=== PATIENT | male | born 1985 | race Caucasian/White ===

== ENCOUNTER 2024-10-08 05:43 | Emergency (ER) | payer MEDICAID ==
[~2024-10-08] VITALS: Ht 175.3 cm; Wt 75.0 kg
[2024-10-08 06:18] VITALS: BP 124/82; PULSE 72; RESP 19; O2SAT 97
[2024-10-08] MEDS ORDERED: OFLO5DRO5 LEFT EAR (06:44)
--- NOTE | 2024-10-08 06:44 | Physician Documentation ---
History of Present Illness ~ Chief Complaint: Ear Pain Stated Complaint: BUG IN EAR Time Seen by MD: 06:04 Source: patient Mode of Arrival: POV, Ambulatory Exam Limitations: no limitations HPI Patient who has had some pain in his left ear for the past 4 days. It is affecting his hearing. States there has been drainage for a couple of days. Is concerned that a bug might have flown into it. Medication Reconciliation Allergies: Coded Allergies: No Known Allergies (Unverified , 10/08/24) Scheduled Ofloxacin (Ofloxacin), 10 DROP LEFT EAR DAILY Review of Systems All Other Systems at this time: Reviewed and Negative Physical Exam Vital Signs: Temperature: 98.3, Heart Rate: 72, Respiratory Rate: 19, BP: 124/82, Pulse Oximetry: 97, Weight: 75.000 Oxygen Flow Rate: 0 General Appearance: WD/WN Ear Left ear: Mild erythema and mild edema of the canal, normal TM, no foreign body, no cerumen, no drainage Head: normal inspection Neck: non-tender, full range of motion Respiratory: lungs clear, normal breath sounds Cardiovascular: regular rate, rhythm Skin: normal color, warm/dry Neurologic: oriented x4, memory intact Psychiatric: normal mood/affect Progress Progress Note Patient in with left otitis externa. Placing him on ofloxacin drops. Discharged home in good condition with care instructions. Follow up with PCP if not improving or if new or worsening symptoms. Results/Orders Results/Orders Vital Signs 10/08/24 10/08/24 10/08/24 10/08/24 05:54 06:07 06:15 06:18 Temp 98.3 98.3 Pulse 82 72 Resp 16 16 19 B/P (MAP) 109/66 124/82 (96) Pulse Ox 98 97 O2 Flow Rate 0 Departure Disposition: 01 HOME / SELF CARE / HOMELESS Impression: Primary Impression: Left otitis externa Qualified Codes: H60.502 - Unspecified acute noninfective otitis externa, left ear Condition: Stable Discharge Instructions: Otitis Externa, [id number] Additional Instructions: Your antibiotics. Follow up with your doctor recheck if not improving or if new or worsening symptoms. Referrals: NO PRIMARY CARE PROVIDER (PCP) Prescriptions Ofloxacin (Ofloxacin) 0.3 % Drops 10 DROP LEFT EAR DAILY for 7 Days, #5 ML 0 Refills Prov: SWATHI PERERA MD 10/08/24 Education Educated: Patient Educated regarding: diagnosis, treatment, need for follow up Signature Scribe Signature: No scribe used Attestation: No scribe used SWATHI PERERA MD Oct 08, 2024 06:44
[2024-10-08 06:55] VITALS: TEMP 98.3
== END 2024-10-08 06:58 | disposition home or self-care (01) ==
LOC: ER 05:44
DX: H60.92 Unspecified otitis externa, left ear (principal)
CPT/HCPCS: 99283

== ENCOUNTER 2025-01-29 21:13 | Emergency (ER) | payer MEDICAID ==
[~2025-01-29] VITALS: Ht 175.3 cm; Wt 77.7 kg
[~2025-01-29 21:13] MED LIST: OFLO5DRO5 LEFT EAR
[2025-01-29 21:39] VITALS: TEMP 97.9
--- NOTE | 2025-01-29 22:38 | Physician Documentation ---
History of Present Illness ~ Chief Complaint: Wrist pain Stated Complaint: RIGHT ARM PAIN Time Seen by MD: 22:38 Primary Medical Doctor: [facility] Mode of Arrival: POV HPI Patient presents to the emergency room for evaluation of right wrist pain. He states he injects IV drugs and he missed his vein. Since then he has been having swelling and got suddenly worse today he had that has concerned there may be an abscess. No fevers. Also having some pain in his right axilla. Tetanus within 5 years: Yes Medication Reconciliation Allergies: Coded Allergies: No Known Allergies (Unverified , 10/08/24) Scheduled Ofloxacin (Ofloxacin), 10 DROP LEFT EAR DAILY Sulfamethoxazole/Trimethoprim (Bactrim Ds Tablet), 1 TAB PO Q12H Review of Systems ROS All review of systems negative except as per HPI Physical Exam Vital Signs: Temperature: 97.9, Source: Temporal, Heart Rate: 133, Respiratory Rate: 18, BP: 118/77, Pulse Oximetry: 95, Weight: 77.700 Physical Exam General: Patient is awake, alert, oriented x4 in no acute distress Head: Normocephalic and atraumatic. Eyes: Conjunctival normal. EOMI. PERRL. ENT: Mucous membranes moist. Neck: Supple, trachea is midline. Chest: Clear to auscultation bilaterally without rales, rhonchi, or wheezes. There is no accessory muscle use or retractions. Cardiac: Tachycardic and regular without murmurs, gallops, or rubs. Extremities: Right upper extremity with significant swelling to wrist with limited motion of flexion extension secondary to swelling Progress Results/Orders Results/Orders Orders - PUMA NORTON MD Vl Venous (01/29/25 22:40) Culture Blood (01/29/25 22:40) Ct Upper Extremities (01/30/25 22:40) Completed Orders - PUMA NORTON MD Vl Venous (01/29/25 22:40) Cbc/Diff (01/29/25 22:40) MG (01/29/25 22:40) Procalcitonin (01/29/25 22:40) BMP (01/29/25 22:40) Lacticsepsis (01/29/25 22:40) Lactic,2hr (01/30/25 00:48) Acetaminophen 1,000mg/100ml Iv (Ofirmev (01/30/25 01:05) Ct Upper Extremities (01/30/25 22:40) Sulfamethox/Trimetho. Ds Tab (Septra Ds (01/30/25 03:05) Vital Signs 01/29/25 01/29/25 01/29/25 01/29/25 21:39 22:30 22:31 23:30 Temp 97.9 Pulse 133 101 94 Resp 16 15 18 17 B/P (MAP) 118/77 119/76 (90) 115/75 (88) Pulse Ox 95 99 99 01/30/25 01/30/25 01/30/25 01/30/25 00:25 00:41 01:40 02:40 Pulse 110 102 114 116 Resp 17 16 16 16 B/P (MAP) 116/77 (90) 130/87 (101) 144/87 (106) 115/69 (84) Pulse Ox 99 98 100 97 Laboratory Tests Test 01/29/25 23:14 01/30/25 00:59 White Blood Count 15.1 H Red Blood Count 4.89 Hemoglobin 14.6 Hematocrit 42.7 Mean Corpuscular Volume 87.2 Mean Corpuscular Hemoglobin 29.8 Mean Corpuscular Hemoglobin Concent 34.2 Red Cell Distribution Width 14.0 Platelet Count 283 Mean Platelet Volume 7.8 Neutrophils (%) (Auto) 87.8 H Lymphocytes (%) (Auto) 5.4 L Monocytes (%) (Auto) 6.1 Eosinophils (%) (Auto) 0.5 Basophils (%) (Auto) 0.2 Neutrophils # (Auto) 13.3 H Lymphocytes # (Auto) 0.8 L Monocytes # (Auto) 0.9 Eosinophils # (Auto) 0.1 Basophils # (Auto) 0.0 CBC Comment Sodium Level 141 Potassium Level 3.7 Chloride Level 104 Carbon Dioxide Level 26.4 Anion Gap 11 Blood Urea Nitrogen 22 H Creatinine 1.23 H Estimated GFR/1.73 m2 66 BUN/Creatinine Ratio 17.9 Glucose Level 125 H Lactic Acid Level 2.1 H 1.4 Calcium Level 8.7 Magnesium Level 2.0 Albumin 3.9 Procalcitonin < 0.05 Chemistry Comments Microbiology Date/Time Source Procedure Growth Status 01/29/25 23:14 Blood Hand Right Blood Culture - Preliminary NEGATIVE (LESS THAN 24 HOURS) Resulted Medical Decision Making Additional information obtaine: old records Findings Patient presents to the emergency room for evaluation of wrist pain as per HPI. Differentials include but are not limited to fractures, dislocations, clots, abscess therefore emergent labs and imaging indicated. Elevation of white blood cell count but negative procalcitonin. Vascular ultrasound is positive for superficial thrombophlebitis but no DVT. I personally reviewed the CT scan I do not appreciate an abscess although patient is unwilling to stay for the official read. He has been insisting on leaving therefore given risks versus benefit I will begin antibiotics with ER precautions discussed. General Diff Dx:Considerations: Include: Abrasion, Contusion, Fracture, Hematoma, Laceration, Malunion, Neurovascular injury, Open fracture, Sprain, Ulcer, Other Shoulder Diff Dx:Consideration: Include: AC separation, Adhesive capsulitis, Arthritis, Bicipital tendonitis, Calcific tendonitis, Cervical disc disease, Contusion, Dislocation, Fracture-humerus, Fracture-scapula, Fracture-clavicle, GB disease, Hematoma, Impingement syndrome, Myocardial infarction, Neurovascular injury, Open fracture-humerus, Open fracture-scapula, Open fracture-clavicle, Rotator cuff injury, SC dislocatoin, Sprain, Subacromial bursitis, Other Elbow Diff Dx:Considerations: Include: Abrasion, Arthritis, Contustion, DJD, Fracture-humerus, Fracture-radial head, Fracture-radius, Fracture-ulna, Gout, Hematoma, Laceration, Neurovascular injury, Olecranon bursitis, Open fracture, Osteomyelitis, Radial head subluxation, Rheumatoid arthritis, Septic, Sprain, Ulcer, Other Wrist Diff Dx:Considerations: Include: Abrasion, Arthritis, DJD, Gout, Rheumatoid, Septic, Carpal tunnel snydrome, Contusion, Dislocation, Fracture- carpal, Fracture-radius, Fracture-ulna, Ganglion, Laceration, Neurovascular injury, Open fracture, Strain, Other Hand Diff Dx:Considerations: Include: Abrasion, Arthritis, Contusion, DJD, Felon, Fracture-carpal, Fracture-metacarpal, Fracture-phalynx, Fracture-radius, Fracture-ulna, Gout, Hematoma, Herpetic samantha, Laceration, Neurovascular injury, Open fracture, Paronychia, Rheumatoid arthritis, Septic, Sprain, Subungual hematoma, Tenosynovitis, Volar plate injury, Cellulitis, Malunion, Other Finger Diff Dx:Considerations: Include: Abrasion, Cellulitis, Contusion, Dislocation, Fracture, Hematoma, Laceration, Neurovascular injury, Open fracture, Subungual hematoma, Other Departure Disposition: 01 HOME / SELF CARE / HOMELESS Impression: Primary Impression: Wrist joint pain Additional Impression: Superficial thrombophlebitis after intravenous administration of drug Condition: Stable Discharge Instructions: Thrombophlebitis Referrals: NO PRIMARY CARE PROVIDER (PCP) Prescriptions Sulfamethoxazole/Trimethoprim (Bactrim Ds Tablet) 800 Mg-160 Mg Tablet 1 TAB PO Q12H for 10 Days, #20 TAB Prov: PUMA NORTON MD 01/30/25 Signature Scribe Signature: No scribe Attestation: The note accurately reflects work and decisions made by me.Puma Norton MD 01/30/25 18:26 PUMA NORTON MD Jan 29, 2025 22:38
[2025-01-29 23:37] LABS: CREATININE 1.23 MG/DL (0.60-1.10); MEAN PLATELET VOLUME 7.8 FL (7.4-10.4); RED CELL DISTRIBUTION WIDTH 14.0 % (11.5-14.5); TOTAL CARBON DIOXIDE 26.4 MMOL/L (24-32); eCRCL 82 ML/MIN; eGFR 66 ML/MIN
[2025-01-30] MEDS: acetaminophen 1,000mg/100ml IV 100 ML IV ONE (01:22)
[2025-01-30 02:40] VITALS: BP 115/69; PULSE 116; RESP 16; O2SAT 97
[2025-01-30] MEDS: sulfamethoxazole/trimethoprim DS (800/160mg) tablet PO ONE (03:06)
[2025-01-30] MEDS ORDERED: SULF1TAB49 PO (03:07)
--- NOTE | 2025-01-30 03:09 | VASCULAR REPORT ---
RIGHT Upper Extremity Venous Duplex Clinical History: Right wrist swelling/pain. Recent IV drug use. Comparison: None Technique: Duplex Doppler evaluation of the venous system of the RIGHT lower neck and upper extremity including color Doppler and spectral/pulsed waveform analysis was performed. Findings: The internal jugular vein demonstrates appropriate compressibility and waveform variability. The subclavian vein is patent on color Doppler evaluation without intraluminal thrombus and demonstrates waveform variability. The visualized portion of the brachiocephalic vein is patent on color Doppler evaluation without intraluminal thrombus and demonstrates waveform variability. The axillary vein demonstrates appropriate compressibility and waveform variability. The brachial veins demonstrate appropriate compressibility and patency on Doppler evaluation. The basilic vein demonstrates occlusive thrombus within the forearm. The cephalic vein demonstrates occlusive appearing thrombus indicated from the level of the biceps to the wrist area of concern. The radial and ulnar veins are unremarkable. Impression: 1. Extensive occlusive thrombus within the cephalic vein from the mid arm to the wrist, and within the basilic vein in the forearm as indicated by the deployment specialist. Tech sheet notes a verbal report was given to the ordering physician.
--- NOTE | 2025-01-30 03:50 | RADIOLOGY REPORT ---
INDICATION: suspected abcess COMPARISON: Same day DVT ultrasound. TECHNIQUE: CT of the right wrist was performed with contrast. Volume transverse images were obtained and reconstructed in multiple planes using bone and soft tissue algorithms. Radiation Dose Information: CT Dose: CTDI volume is 3 mGy. Dose-length product is 105 mGy*cm FINDINGS: No evidence of organized fluid collection. Inflammatory stranding along the volar and radial aspect throughout the forearm, most focal at the level of the distal radial meta diaphysis. Several areas of dorsal skin thickening are present. No evidence of osseous erosion, periostitis, pathologic sclerosis or joint effusion. Surgical anchor within the distal radial metaphysis. Unremarkable appearance of muscles and vascular structures; venous thrombus seen on comparison ultrasound. IMPRESSION: 1. No evidence of right wrist abscess. 2. Inflammatory stranding throughout the visualized forearm. All CT scans at this medical facility are performed using dose modulation techniques as appropriate to a performed exam including the following: Automated exposure control was utilized; adjustment of the MA and/or KV according to patient size; and use of iterative reconstruction technique.
[2025-01-30] MEDS ORDERED: iohexol 300mg/ml 100ml inj. ONE (08:00)
== END 2025-01-30 03:20 | disposition left against medical advice (07) ==
LOC: ER 21:14
DX: I80.9 Phlebitis and thrombophlebitis of unspecified site (principal); Z79.899 Other long term (current) drug therapy
CPT/HCPCS: 36415; 73201; 80048; 83605; 83735; 84145; 85025; 87040; 93971; 96365; 99285; J0131; Q9967; A6258